=== PATIENT | female | born 1985 | race Asian ===

== ENCOUNTER 2018-09-17 15:37 | Outpatient (CLI) | payer MEDICAID | END 2018-09-17 17:30 | disposition home or self-care (01) | LOC: OBT 15:37 → L-D 15:38 → OBT 17:30 | DX: O24.419 Gestational diabetes mellitus in pregnancy, unspecified control (principal); Z3A.37 37 weeks gestation of pregnancy | CPT/HCPCS: 76818 ==

== ENCOUNTER 2018-10-05 07:07 | Inpatient (IN) | payer MEDICAID ==
[2018-10-05] MEDS: LACTATED RINGER'S 1,000 ML IV ×4 (05:30→21:11)
[2018-10-05] MEDS ORDERED: CEFAZOLIN 2 GM/50 ML (PMX) 50 ML IVPB (08:00)
[2018-10-05] MEDS ORDERED: OXYTOCIN 30 UNITS/LR 500 ML IV ×3 (08:00→10:00)
[2018-10-05] MEDS ORDERED: CARBOPROST 250 MCG INJ IM ×2 (08:00→10:00)
[2018-10-05] MEDS ORDERED: METHYLERGONOVINE 0.2 MG INJ IM ×2 (08:00→10:00)
[2018-10-05] MEDS ORDERED: MISOPROSTOL 200 MCG TAB PR ×2 (08:00→10:00)
[2018-10-05 08:19] LABS: ADD MAN DIFF? NO
[2018-10-05 08:31] LABS: BASOPHILS % 0.4 % (0.0-2.0); EOSINOPHILS # 0.1 10^3/ul (0.0-0.5); EOSINOPHILS % 0.7 % (0.0-7.0); HEMATOCRIT 38.5 % (37.0-47.0); HEMOGLOBIN 12.7 g/dl (12.0-16.0); LYMPHOCYTES # 1.7 10^3/ul (0.8-2.9); LYMPHOCYTES % 19.5 % (15.0-51.0); MEAN CORPUSCULAR HEMOGLOBIN 29.5 pg (29.0-33.0); MEAN CORPUSCULAR VOLUME 89.3 fl (82.0-101.0); MEAN PLATELET VOLUME 10.5 fl (7.4-10.4); MONOCYTE # 0.5 10^3/ul (0.3-0.9); MONOCYTES % 6.4 % (0.0-11.0); NEUTROPHILS % 71.1 % (39.0-77.0); PLATELET COUNT 249 10^3/UL (140-415); RED BLOOD COUNT 4.31 10^6/ul (4.20-5.40); RED CELL DISTRIBUTION WIDTH 13.3 % (11.5-14.5)
[2018-10-05 08:31] LABS: WHITE BLOOD COUNT 8.4 10^3/ul (4.8-10.8)
[2018-10-05 08:55] LABS: INR 0.93; PROTIME 12.6 Sec (11.9-14.9)
[2018-10-05 08:56] LABS: PARTIAL THROMBOPLASTIN TIME 26.3 Sec (23.0-35.0)
[2018-10-05 09:18] LABS: HEPATITIS B SURFACE ANTIGEN NEGATIVE (NEGATIVE)
[2018-10-05] MEDS ORDERED: FENTAnyl 50 MCG/ML VIAL (09:51)
[2018-10-05] MEDS ORDERED: morphine SULFATE/PF (10 MG/10 ML) INJ (09:51)
[2018-10-05] MEDS ORDERED: FAMOTIDINE 20 MG INJ (09:52)
[2018-10-05] MEDS ORDERED: DEXAMETHASONE 4 MG/ML 1 ML INJ (09:52)
[2018-10-05] MEDS ORDERED: ONDANSETRON 4 MG INJ (09:52)
[2018-10-05] MEDS ORDERED: NA PHOSPHATE/BIPHOS 133 ML ENEMA PR (10:00)
[2018-10-05] MEDS ORDERED: METHYLERGONOVINE 0.2 MG TAB PO (10:00)
[2018-10-05] MEDS ORDERED: PHENYLephrine (100 MCG/ML) 5ML SYG (10:11)
[2018-10-05] MEDS ORDERED: KETOROLAC 30 MG INJ IV (11:30)
[2018-10-05] MEDS ORDERED: HYDROmorphONE 0.5 MG/0.5 ML SYG IV (11:30)
[2018-10-05] MEDS ORDERED: NALOXONE (0.4 MG/ML) INJ IV (11:30)
[2018-10-05] MEDS ORDERED: ZOLPIDEM 5 MG TAB PO (11:30)
[2018-10-05] MEDS: OXYTOCIN 30 UNITS/LR 500 ML IV (12:32)
[2018-10-05] MEDS: HYDROmorphONE 0.5 MG/0.5 ML SYG IV (12:37)
[2018-10-05] MEDS: ONDANSETRON 4 MG INJ IV (12:46)
[2018-10-05] MEDS: DIPHENHYDRAMINE 50 MG INJ IV (12:47)
[2018-10-05] MEDS: IBUPROFEN 800 MG TAB PO ×2 (14:00→22:00)
[2018-10-05] MEDS: CEFAZOLIN 2 GM/50 ML (PMX) 50 ML IVPB (18:16)
[2018-10-05 20:51] LABS: RAPID PLASMA REAGIN NONREACTIVE (NR)
[2018-10-05] MEDS: SENNA/DOCUSATE NA (8.6MG/50MG) TAB PO (21:11)
[2018-10-06] MEDS: CEFAZOLIN 2 GM/50 ML (PMX) 50 ML IVPB ×2 (02:09→09:00)
[2018-10-06] MEDS: IBUPROFEN 800 MG TAB PO ×3 (06:00→21:38)
[2018-10-06 07:36] LABS: ADD MAN DIFF? NO
[2018-10-06 07:39] LABS: WHITE BLOOD COUNT 13.4 10^3/ul (4.8-10.8)
[2018-10-06 07:39] LABS: BASOPHILS % 0.3 % (0.0-2.0); EOSINOPHILS # 0.1 10^3/ul (0.0-0.5); EOSINOPHILS % 0.4 % (0.0-7.0); HEMATOCRIT 32.3 % (37.0-47.0); HEMOGLOBIN 10.8 g/dl (12.0-16.0); LYMPHOCYTES # 1.9 10^3/ul (0.8-2.9); LYMPHOCYTES % 14.2 % (15.0-51.0); MEAN CORPUSCULAR HEMOGLOBIN 29.7 pg (29.0-33.0); MEAN CORPUSCULAR HGB CONC 33.4 g/dl (32.0-37.0); MEAN CORPUSCULAR VOLUME 88.7 fl (82.0-101.0); MEAN PLATELET VOLUME 10.5 fl (7.4-10.4); MONOCYTE # 1.1 10^3/ul (0.3-0.9); MONOCYTES % 8.1 % (0.0-11.0); NEUTROPHIL # 10.2 10^3/ul (1.6-7.5); NEUTROPHILS % 75.9 % (39.0-77.0); PLATELET COUNT 226 10^3/UL (140-415); RED BLOOD COUNT 3.64 10^6/ul (4.20-5.40); RED CELL DISTRIBUTION WIDTH 13.2 % (11.5-14.5)
[2018-10-06] MEDS: SENNA/DOCUSATE NA (8.6MG/50MG) TAB PO ×2 (09:00→21:38)
[2018-10-06] MEDS: HYDROmorphONE 0.5 MG/0.5 ML SYG IV (09:00)
[2018-10-06] MEDS: HYDROCODONE/APAP (5/325) TAB PO (10:52)
[2018-10-06] MEDS: LACTATED RINGER'S 1,000 ML IV ×2 (13:30→21:30)
[2018-10-06] MEDS: BISACODYL (EC) 5 MG TAB PO (13:33)
[2018-10-07] MEDS: LACTATED RINGER'S 1,000 ML IV (05:30)
[2018-10-07] MEDS: IBUPROFEN 800 MG TAB PO ×3 (05:49→22:04)
[2018-10-07] MEDS: LANOLIN 7 GM TUBE TOP (05:56)
[2018-10-07 08:22] LABS: ADD MAN DIFF? NO
[2018-10-07 08:32] LABS: WHITE BLOOD COUNT 12.9 10^3/ul (4.8-10.8)
[2018-10-07 08:32] LABS: BASOPHILS % 0.3 % (0.0-2.0); EOSINOPHILS # 0.1 10^3/ul (0.0-0.5); EOSINOPHILS % 1.1 % (0.0-7.0); HEMATOCRIT 35.2 % (37.0-47.0); HEMOGLOBIN 11.4 g/dl (12.0-16.0); LYMPHOCYTES # 1.7 10^3/ul (0.8-2.9); LYMPHOCYTES % 13.3 % (15.0-51.0); MEAN CORPUSCULAR HEMOGLOBIN 29.2 pg (29.0-33.0); MEAN CORPUSCULAR HGB CONC 32.4 g/dl (32.0-37.0); MEAN CORPUSCULAR VOLUME 90.3 fl (82.0-101.0); MEAN PLATELET VOLUME 10.4 fl (7.4-10.4); MONOCYTES % 7.4 % (0.0-11.0); NEUTROPHIL # 9.9 10^3/ul (1.6-7.5); PLATELET COUNT 266 10^3/UL (140-415); RED CELL DISTRIBUTION WIDTH 13.4 % (11.5-14.5)
[2018-10-07] MEDS: SENNA/DOCUSATE NA (8.6MG/50MG) TAB PO ×2 (09:00→21:00)
[2018-10-07] MEDS: BISACODYL (EC) 5 MG TAB PO (12:28)
[2018-10-07] MEDS: HYDROCODONE/APAP (5/325) TAB PO (19:58)
[2018-10-08] MEDS: IBUPROFEN 800 MG TAB PO ×2 (06:33→13:34)
[2018-10-08] MEDS: HYDROCODONE/APAP (5/325) TAB PO (08:02)
[2018-10-08] MEDS: SENNA/DOCUSATE NA (8.6MG/50MG) TAB PO (09:00)
[2018-10-08] MEDS: DIPHTH/TET/ACEL PERTUSS (ADULT) 0.5 ML VIAL IM* (12:09)
[2018-10-08] MEDS: MEASLES,MUMPS,RUBELLA VACCINE INJ SC* (12:11)
== END 2018-10-08 14:20 | disposition home or self-care (01) | DRG 788 ==
LOC: L-D 07:07 → PP1 13:56
PROVIDERS: Obstetrics & Gynecology
PROC: 10D00Z1 Extraction of Products of Conception, Low, Open Approach (ICD-10-PCS; principal; 2018-10-05 09:00)
DX: O34.211 Maternal care for low transverse scar from previous cesarean delivery (principal); Z3A.39 39 weeks gestation of pregnancy; Z37.0 Single live birth; O24.410 Gestational diabetes mellitus in pregnancy, diet controlled
CPT/HCPCS: 82962; 85025; 85610; 85730; 86592; 86850; 86900; 86901; 87340; 88307; 90715; 99464